=== PATIENT | female | born 2000 | race Caucasian/White ===

== ENCOUNTER 2021-06-03 11:05 | Outpatient (CLI) | payer OTHER ==
[~2021-06-03] VITALS: Ht 162.6 cm; Wt 65.5 kg
[2021-06-03 11:29] VITALS: BP 118/82
[2021-06-03] MEDS ORDERED: COLA100C5 PO (11:54)
[2021-06-03] MEDS ORDERED: VITA100T59 PO (11:54)
[2021-06-03] MEDS ORDERED: IRON65TA2 PO (11:54)
[2021-06-03] MEDS ORDERED: PRENTAB9 PO (11:54)
== END 2021-06-03 12:14 | disposition home or self-care (01) ==
LOC: M LDO 11:05
PROVIDERS: ATTEND Obstetrics & Gynecology
DX: O36.8130 Decreased fetal movements, third trimester, not applicable or unspecified (principal); Z3A.32 32 weeks gestation of pregnancy
CPT/HCPCS: 59025; G0463

== ENCOUNTER 2021-08-05 07:30 | Inpatient (IN) | payer OTHER ==
[~2021-08-05] VITALS: Ht 162.6 cm; Wt 67.9 kg
[2021-08-05] VITALS (27 sets, daily range): BP systolic 105–132; BP diastolic 55–87
[~2021-08-05 07:30] MED LIST: COLA100C5 PO; IRON65TA2 PO; PRENTAB9 PO; VITA100T59 PO
[2021-08-05] MEDS ORDERED: HOME MED LIST COMPLETE! XX SCH (08:00)
[2021-08-05] MEDS ORDERED: CARBOPROST TROMETHAMINE 250 MCG/ML AMP IM PRN (08:50)
[2021-08-05] MEDS ORDERED: METHYLERGONOVINE MALEATE 0.2 MG/ML VIAL (J2210) IM PRN (08:50)
[2021-08-05] MEDS ORDERED: LIDOCAINE 1% MDV 20ML VIAL INFIL PRN (08:50)
[2021-08-05] MEDS ORDERED: OXYTOCIN INJ 10 UNITS/ML VIAL (J2590) IV PRN (08:50)
[2021-08-05] MEDS ORDERED: OXYTOCIN DRIP 30 UNITS in IV 1 EA IV PRN ×4 (08:50)
[2021-08-05 09:43] LABS: APPEARANCE, URINE HAZY (CLEAR); BACTERIA, URINE AUTO NEGATIVE (NEGATIVE); BILIRUBIN, URINE AUTO NEGATIVE (NEGATIVE); BLOOD, URINE BLOOD NEGATIVE (NEGATIVE); COLOR, URINE YELLOW (YELLOW); GLUCOSE, URINE (UA) AUTO NEGATIVE (NEGATIVE); HEMATOCRIT 37.2 % (36.0-47.0); HEMOGLOBIN 12.6 g/dl (12.0-15.5); KETONE, URINE AUTO TRACE mg/dL (NEGATIVE); LEUKOCYTE ESTERASE, URINE AUTO NEGATIVE (NEGATIVE); MEAN CORPUSCULAR HGB CONC 33.9 g/dl (32.0-36.5); MEAN CORPUSCULAR VOLUME 91.4 fl (80.0-96.0); NITRITE, URINE AUTO NEGATIVE (NEGATIVE); PLATELET COUNT, AUTOMATED 234 10^3/uL (150-450); PROTEIN, URINE AUTO NEGATIVE (NEGATIVE); RBC, URINE AUTO 0 /HPF (0-3); RED BLOOD COUNT 4.07 10^6/uL (4.00-5.40); SPECIFIC GRAVITY URINE AUTO 1.008 (1.002-1.035); SQUAMOUS EPITHELIAL CELL UR AU 5 /HPF (0-6); UROBILINOGEN, URINE AUTO 0.2 mg/dL (0.0-2.0); WBC, URINE AUTO 2 /HPF (0-3); WHITE BLOOD COUNT 9.9 10^3/uL (4.0-10.0)
[2021-08-05] MEDS ORDERED: miSOPROStol 50MCG 1/2 TABLET PO ONE (10:25)
[2021-08-05] MEDS ORDERED: OXYTOCIN DRIP 30 UNITS in IV 1 EA IV SCH (16:25)
[2021-08-05] MEDS ORDERED: LR 1,000 ML IV SCH (16:25)
[2021-08-05] MEDS ORDERED: LACTATED RINGER'S 1000 ML IV STA (16:30)
[2021-08-05] MEDS ORDERED: FENTANYL 2MCG/ML ROPIVACAINE 0.2% IN 0.9% NACL 100ML IVBAG As Ordered ONE (18:27)
[2021-08-05] MEDS ORDERED: ONDANSETRON 4MG/2ML VIAL IV PRN (18:45)
[2021-08-05] MEDS ORDERED: diphenhydrAMINE 50MG/ML VIAL (J1200) IV PRN ×2 (18:45→19:50)
[2021-08-05] MEDS ORDERED: ePHEDrine SULFATE 25 MG/5 ML(5MG/ML) SYRINGE IVP PRN ×2 (18:45→19:50)
[2021-08-05] MEDS ORDERED: EPIDURAL/PCA KEYS XX PRN (18:45)
[2021-08-05] MEDS ORDERED: LR 500 ML IV PRN ×2 (18:45→19:50)
[2021-08-05] MEDS ORDERED: NALOXONE INJ 0.4MG/1ML VIAL (J2310 PER 1MG) IV PRN ×2 (18:45→19:50)
[2021-08-05] MEDS ORDERED: FENTANYL/ROPIVACAINE/NACL BAG 100 ML EPIDURAL SCH ×2 (18:45→19:50)
[2021-08-06 00:02] VITALS: BP 115/62
[2021-08-06 00:17] VITALS: BP 114/61
[2021-08-06 00:18] LABS: CORD GAS ABE V -5.6; CORD GAS HCO3 A 20.7 MEQ/L; CORD GAS HCO3 V 20.5 MEQ/L; CORD GAS O2 SAT A 46.5 %; CORD GAS O2 SAT V 45.8 %; CORD GAS PCO2 A 40.8 mmHg; CORD GAS PCO2 V 42.5 mmHg; CORD GAS PH A 7.323 UNITS; CORD GAS PH V 7.302 UNITS; CORD GAS PO2 A 22.4 mmHg; CORD GAS PO2 V 22.1 mmHg; CORD GAS SBC A 19.2 MEQ/L; CORD GAS SBC V 18.7 MEQ/L; CORD GAS TCO2 A 21.9 MEQ/L; CORD GAS TCO2 V 21.8 MEQ/L
[2021-08-06 00:32] VITALS: BP 118/62
[2021-08-06] MEDS ORDERED: DOCUSATE SODIUM 100MG CAPSULE PO PRN (00:40)
[2021-08-06] MEDS ORDERED: MEASLES,MUMPS,RUBELLA VACCINE INJ (MMR-II) (90707) SC SCH (00:40)
[2021-08-06] MEDS ORDERED: ACETAMINOPHEN TAB 650MG DOSE (2X325MG) PO PRN (00:40)
[2021-08-06] MEDS: LR 1,000 ML IV SCH ×2 (00:40→08:17)
[2021-08-06] MEDS ORDERED: OXYTOCIN DRIP 30 UNITS in IV 1 EA IV SCH (00:40)
[2021-08-06] MEDS ORDERED: OXYTOCIN DRIP 30 UNITS in IV 1 EA IV ONE (00:40)
[2021-08-06] MEDS ORDERED: ANUSOL HC CREAM 30GM TOP PRN (00:40)
[2021-08-06] MEDS ORDERED: METHYLERGONOVINE MALEATE 0.2 MG TAB PO PRN (00:40)
[2021-08-06] MEDS ORDERED: ACETAMINOPHEN 500 MG TAB PO PRN (00:40)
[2021-08-06] MEDS ORDERED: OXYTOCIN INJ 10 UNITS/ML VIAL (J2590) IV ONE (00:40)
[2021-08-06] MEDS ORDERED: MOM 30ML SUSPENSION UDC PO PRN (00:40)
[2021-08-06] MEDS ORDERED: DIBUCAINE 1% OINTMENT 30GM TOP PRN (00:40)
[2021-08-06] MEDS ORDERED: RHOGAM 300 MCG (1500 IU) INJ (J2790) IM SCH (00:40)
[2021-08-06 01:57] VITALS: BP 135/72
[2021-08-06 06:00] VITALS: BP 116/66
[2021-08-06] MEDS: IBUPROFEN 600MG TAB PO PRN ×2 (08:16→15:05)
[2021-08-06] MEDS ORDERED: PRENATAL VITAMINS CHEWABLE TABLET PO SCH (09:00)
[2021-08-06 18:00] VITALS: BP 124/58
[2021-08-07] MEDS: IBUPROFEN 600MG TAB PO PRN (04:09)
[2021-08-07 06:00] VITALS: BP 121/62
[2021-08-07] MEDS ORDERED: IBUP-1022 PO (06:57)
[2021-08-07] MEDS ORDERED: PRENCHW PO (06:57)
[2021-08-07] MEDS ORDERED: COLA100C5 PO (06:57)
[2021-08-07 07:33] LABS: HEMATOCRIT 31.3 % (36.0-47.0); MEAN CORPUSCULAR HEMOGLOBIN 31.8 pg (27.0-33.0); MEAN CORPUSCULAR HGB CONC 33.2 g/dl (32.0-36.5); MEAN CORPUSCULAR VOLUME 95.7 fl (80.0-96.0); PLATELET COUNT, AUTOMATED 169 10^3/uL (150-450); RED BLOOD COUNT 3.27 10^6/uL (4.00-5.40); WHITE BLOOD COUNT 10.6 10^3/uL (4.0-10.0)
[2021-08-07 07:34] LABS: HEMOGLOBIN 10.4 g/dl (12.0-15.5)
== END 2021-08-07 09:10 | disposition home or self-care (01) | DRG 807 ==
LOC: M LDI 07:30 → M OBS 08-06 01:45
PROVIDERS: ADMIT Obstetrics & Gynecology; ATTEND Obstetrics & Gynecology
PROC: 3E0P7GC Introduction of Other Therapeutic Substance into Female Reproductive, Via Natural or Artificial Opening (ICD-10-PCS; 2021-08-05)
PROC: 10E0XZZ Delivery of Products of Conception, External Approach (ICD-10-PCS; principal; 2021-08-06)
PROC: 0HQ9XZZ Repair Perineum Skin, External Approach (ICD-10-PCS; 2021-08-06)
DX: O48.0 Post-term pregnancy (principal); Z37.0 Single live birth; Z3A.41 41 weeks gestation of pregnancy; O70.0 First degree perineal laceration during delivery

== ENCOUNTER 2023-04-13 05:15 | Inpatient (IN) | payer OTHER ==
[2023-04-13] VITALS (8 sets, daily range): BP systolic 111–126; BP diastolic 62–75; O2SAT 98–100
[~2023-04-13] VITALS: Ht 162.6 cm; Wt 71.2 kg
[~2023-04-13 05:15] MED LIST changes: +IBUP-1022 PO; +PRENCHW PO
[2023-04-13] MEDS ORDERED: OXYTOCIN INJ 10UNITS/ML 1ML VIAL As Ordered ONE (05:29)
[2023-04-13] MEDS ORDERED: OXYTOCIN 30UNITS IN 0.9% NaCl 500ML IV BAG As Ordered ONE (05:29)
[2023-04-13] MEDS ORDERED: LIDOCAINE 1% MDV 20ML VIAL As Ordered ONE (05:42)
[2023-04-13] MEDS ORDERED: ACETAMINOPHEN 500 MG TAB PO PRN (06:10)
[2023-04-13] MEDS ORDERED: OXYTOCIN INJ 10UNITS/ML 1ML VIAL IV PRN (06:10)
[2023-04-13] MEDS ORDERED: OXYTOCIN INJ 10UNITS/ML 1ML VIAL IM PRN (06:10)
[2023-04-13] MEDS ORDERED: RHOGAM 300MCG (1500IU) INJ IM SCH (06:10)
[2023-04-13] MEDS ORDERED: CARBOPROST TROMETHAMINE 250 MCG/ML AMP IM PRN (06:10)
[2023-04-13] MEDS ORDERED: TRANEXAMIC ACID INJection 1,000 MG in NS 100 ML IV PRN (06:10)
[2023-04-13] MEDS ORDERED: LIDOCAINE 1% MDV 20ML VIAL INFIL PRN (06:10)
[2023-04-13] MEDS ORDERED: OXYTOCIN DRIP 30 UNITS in IV 1 EA IV PRN ×6 (06:10)
[2023-04-13] MEDS ORDERED: METHYLERGONOVINE MALEATE 0.2MG/ML 1ML VIAL IM PRN (06:10)
[2023-04-13] MEDS ORDERED: DIBUCAINE 1% OINTMENT 30GM TOP PRN (06:10)
[2023-04-13] MEDS ORDERED: MOM 30ML SUSPENSION UDC PO PRN (06:10)
[2023-04-13] MEDS: PRENATAL VITAMINS CHEWABLE TABLET PO SCH (07:34)
[2023-04-13] MEDS: DOCUSATE SODIUM 100MG CAPSULE PO SCH ×2 (07:34→20:40)
[2023-04-13 08:11] LABS: HEMATOCRIT 33.7 % (36.0-47.0); HEMOGLOBIN 11.1 g/dl (12.0-15.5); MEAN CORPUSCULAR HEMOGLOBIN 28.6 pg (27.0-33.0); MEAN CORPUSCULAR HGB CONC 32.9 g/dl (32.0-36.5); MEAN CORPUSCULAR VOLUME 86.9 fl (80.0-96.0); PLATELET COUNT, AUTOMATED 229 10^3/uL (150-450); RED BLOOD COUNT 3.88 10^6/uL (4.00-5.40); WHITE BLOOD COUNT 15.2 10^3/uL (4.0-10.0)
[2023-04-13] MEDS: IBUPROFEN 800 MG TAB PO PRN (20:40)
[2023-04-14 06:37] VITALS: BP 128/58; O2SAT 99
[2023-04-14] MEDS ORDERED: IBUP80TA PO (07:42)
[2023-04-14] MEDS ORDERED: COLA100C5 PO (07:42)
[2023-04-14] MEDS ORDERED: ACET-683 PO (07:42)
[2023-04-14] MEDS: DOCUSATE SODIUM 100MG CAPSULE PO SCH (08:05)
[2023-04-14] MEDS: PRENATAL VITAMINS CHEWABLE TABLET PO SCH (08:05)
[2023-04-14] MEDS: IBUPROFEN 800 MG TAB PO PRN (13:58)
[2023-04-15] MEDS ORDERED: MEASLES,MUMPS,RUBELLA VACCINE INJ (MMR-II) SC.IMMUN ONE (09:00)
== END 2023-04-14 18:20 | disposition home or self-care (01) | DRG 807 ==
LOC: M LDO 05:15 → M LDI 05:24 → M OBS 09:00
PROVIDERS: ADMIT Obstetrics & Gynecology; ATTEND Obstetrics & Gynecology
PROC: 10E0XZZ Delivery of Products of Conception, External Approach (ICD-10-PCS; principal; 2023-04-13)
PROC: 0HQ9XZZ Repair Perineum Skin, External Approach (ICD-10-PCS; 2023-04-13)
DX: O62.3 Precipitate labor (principal); Z37.0 Single live birth; Z3A.40 40 weeks gestation of pregnancy; O69.82X0 Labor and delivery complicated by other cord entanglement, without compression, not applicable or unspecified; O70.0 First degree perineal laceration during delivery